=== PATIENT | female | born 1995 | race Caucasian/White ===

== ENCOUNTER 2024-04-12 14:07 | Outpatient (CLI) | payer OTHER, SELFPAY ==
--- NOTE | ~2024-04-12 | US_ITS ---
Abdominal Sonogram: Real-time sonographic imaging of the abdomen was performed. Clinical History: Abdominal pain Findings: The liver appears echogenic, with no evidence of mass lesion or bile duct dilatation. Main portal vein demonstrates normal direction of flow. The spleen is normal in size without evidence of focal lesion. The gallbladder is well distended, and appears normal with no evidence of gallstone or wall thickening. The common bile duct measures 5 mm. The visualized pancreas, aorta, and IVC are un remarkable. The right kidney measures 10.9 cm in length and the left kidney measures 11.1 cm. There is no hydronephrosis or renal calculus. Impression: Diffuse fatty infiltration of the liver. Reviewed, dictated and finalized at location M. TER Impression: Diffuse fatty infiltration of the liver.
== END 2024-04-12 14:08 | disposition home or self-care (01) ==
PROVIDERS: PCP Family Medicine; Visit Provider Registered Nurse
DX: R10.9 Unspecified abdominal pain (principal); K76.0 Fatty (change of) liver, not elsewhere classified
CPT/HCPCS: 76700

== ENCOUNTER 2024-04-23 12:53 | Outpatient (CLI) | payer MEDICAID, SELFPAY ==
--- NOTE | ~2024-04-23 | US_ITS ---
EXAMINATION: US pelvic complete w TV DATE: 04/23/2024 13:23 INDICATION: Pelvic pain. TECHNIQUE: Multiple transabdominal and transvaginal sonographic images of the pelvis were obtained. COMPARISON: None. FINDINGS: TRANSABDOMINAL ULTRASOUND: The uterus measures 8.8 x 5.0 x 4.2 cm. There is physiologic free fluid in the pelvis. TRANSVAGINAL ULTRASOUND: The endometrial complex measures 17 mm in thickness. The right ovary measures 4.1 x 3.3 x 3.3 cm. The re is a 3.0 cm hyperechoic mass with low-level echoes in right ovary, likely a hemorrhagic cyst. Vasc ular flow was not demonstrated in right ovary, which may be secondary to technique. The left ovary me asures 2.8 x 2.0 x 2.1 cm. There is normal vascular flow in left ovary. IMPRESSION: 1. 3.0 cm hemorrhagic cyst in right ovary. Vascular flow was not demonstrated in right ovary, which m ay be secondary to technique. Reviewed, dictated and finalized at location A. NING OPERATOR IMPRESSION: 1. 3.0 cm hemorrhagic cyst in right ovary. Vascular flow was not demonstrated i n right ovary, which may be secondary to technique.
== END 2024-04-23 12:54 | disposition home or self-care (01) ==
PROVIDERS: PCP Family Medicine; Visit Provider Registered Nurse
DX: N83.201 Unspecified ovarian cyst, right side (principal)
CPT/HCPCS: 76830; 76856

== ENCOUNTER 2024-06-01 07:28 | Outpatient (CLI) | payer OTHER, SELFPAY ==
--- NOTE | ~2024-06-01 | CT_ITS ---
EXAMINATION: CT abdomen pelvis w con DATE: 06/01/2024 08:12 INDICATION: Right abdominal pain. TECHNIQUE: Computed tomography (CT) of the abdomen and pelvis was performed with 100 mL Omnipaque 350 intravenous contrast. Automated exposure control and iterative reconstruction technique were employe d. The dose-length product was 880.01 mGy-cm. COMPARISON: Pelvis ultrasound 04/23/2024 FINDINGS: The visualized portions of the lung bases are clear without pneumonia or pleural effusion. The heart size is normal. No pericardial effusion. The liver, gallbladder, spleen, pancreas, adrenal glands, and kidneys are normal. There are no dilated loops of bowel. The appendix is normal. There ar e no pathologically enlarged lymph nodes. There is no free intraperitoneal fluid. The bones are unrem arkable. IMPRESSION: 1. No etiology for the patient's symptoms. Reviewed, dictated and finalized at location B. GER EQUIPMENT
== END 2024-06-01 07:29 | disposition home or self-care (01) ==
LOC: CHSIMG 07:29
PROVIDERS: PCP Family Medicine; Visit Provider Registered Nurse
DX: R10.9 Unspecified abdominal pain (principal)
CPT/HCPCS: 74177; Q9967

== ENCOUNTER 2024-07-31 14:18 | Outpatient (CLI) | payer OTHER, SELFPAY ==
--- NOTE | ~2024-07-31 | US_ITS ---
EXAMINATION: US pelvic complete w TV INDICATION: Pelvic pain Comparison:No prior studies for comparison. TECHNIQUE: Multiple transabdominal and endovaginal sonographic images of the pelvis performed. FINDINGS: The uterus measures 8.8 x 5 x 4.2 cm. The endometrial complex measures 17 mm. The right ovary measures 4.1 x 3.3 x 3.3 cm and the left ovary measures 2.8 x 2 x 2.1 cm. There is a simple cyst of the right ovary measuring 3 cm. There are small follicles in each ovary. Normal dopple r signal in both ovaries. There is free fluid in the pelvis. There are no abnormal masses seen on either side. IMPRESSION: 1. Simple right ovarian cyst measuring 3 cm. 2: Endometrial thickening. Reviewed, dictated and finalized at location A.
--- OUTSIDE RECORDS SUMMARY | 2024-07-31 16:46 | XMS_ITS | Clinical Summary ---
Author Organization [facility] Address [address] [place] [id number] Care Team Providers Care Acid Purifier Name Role Phone None, Provider MD Primary Care Provider Unavaila ble Allergies No known active allergies Medications ondansetron (ZOFRAN-ODT) 4 MG disintegrating tablet Take 1 tablet (4 mg total) by mouth every 8 (eight) hours as needed. 10 tablet Active Social History Tobacco Use Types Packs/Day Years Used Date Smoking Tobacco: Never Smokeless Tobacco: Never Tobacco Cessation:Counseling Given: Not Answered Alcohol Use Standard Drinks/Week Comments Never 0 (1 standard drink = 0.6 oz pur e alcohol) Comments No Sex and Gender Information Value Date Recorded Sex Assigned at Not on file Legal Sex Female 1:58 PM CDT Gender Identity Not on file Sexual Orientation Not on file Last Filed Vital Signs Vital Sign Reading Time Taken Comments Blood Pressure 118/79 04/07/2024 10:00 AM PLATE FITTER Pulse 83 04/07/2024 9:55 AM PLATE FITTER Temperature 37.1 C (98.7 F) 04/07/2024 8:44 AM PLATE FITTER Respiratory Rate 16 04/07/2024 9:55 AM PLATE FITTER Oxygen Saturation 98% 04/07/2024 10:00 AM PLATE FITTER Inhaled Oxygen Concentration - - Weight 102.3 kg (225 lb 8 oz) 04/07/2024 8:44 AM PLATE FITTER Height 157.5 cm (5' 2 ) 04/07/2024 8:44 AM PLATE FITTER Body Mass Index 41.24 04/07/2024 8:44 AM PLATE FITTER Plan of Treatment Health Maintenance Due Date Last Done Comments Cervical Cancer Screening Pap Smear (Age 21 to 29) Every 3 Years 1996 Cervical Cancer Screening 1996 Annual Physical 1999 Hepatitis C 2014 DTaP, Tdap and Td Vaccines (4 - Td or Tdap) 12/22/2020 12/22/2010, 12/08/2001, 11/04/1997, Additional history exists COVID-19 Vaccine (2023- season) 2024 06/15/2021, 12/03/2020 Influenza Adult (#1) 2024 Hepatitis B Vaccines Completed 1996, 1996, 1996 HPV Vaccines Aged Out No longer eligi ble based on patient's age to complete this topic Meningococcal B Vaccine Aged Out No l onger eligible based on patient's age to complete this topic Meningococcal Vaccine Aged Out No herber valdo eligible based on patient's age to complete this topic Pneumococcal Vaccine: Pediatrics (0 to 5 Years) and At-Risk Patients (6 to 64 Years) Aged Out No longer eligible based on patient's age to complete this topic RSV Immunizations Under 20 Months Aged Out No longer eligible based on patient's age to complete this topic Insurance Care Teams Acid Purifier Relationship Specialty Start Date End Date None, Provider, MD PCP - General UNKNOWN PHYSICIAN SPECIALTY 02/01/24
== END 2024-07-31 14:19 | disposition home or self-care (01) ==
LOC: CHSIMG 14:20
PROVIDERS: PCP Registered Nurse; Visit Provider Registered Nurse
DX: N83.201 Unspecified ovarian cyst, right side (principal); R93.89 Abnormal findings on diagnostic imaging of other specified body structures
CPT/HCPCS: 76830; 76856